=== PATIENT | female | born 1980 | race Caucasian/White ===

== ENCOUNTER → 2016-08-14 | Outpatient (CLI) | payer MEDICAID ==
--- NOTE | 2016-08-14 16:52 | RADIOLOGY REPORT (SQ) ---
EXAM DESCRIPTION: U/S 1TRIMESTER/1GEST W/DOPPLER COMPLETED DATE/TIME: 08/14/2016 4:42 pm REASON FOR STUDY: ENCOUNTER FOR SUPERVISION OF NORMAL Z34.81 ENCOUNTER FOR SUPRVSN OF NOR MAL , FIRST TRIM COMPARISON: None. TECHNIQUE: Transabdominal static and realtime grayscale images acquired of the pelvis. Additional se lected spectral and color Doppler images recorded. All images stored on PACs. bHCG: Not available, last menses 06/16/2016 LIMITATIONS: None. FINDINGS: FETUS: Living intrauterine . EGA: 7 weeks 6 days by crown-rump length GERMAIN: 03/27/2016 FHR: 150 beats per minute. SUBCHORIONIC BLEED: Yes SIZE OF BLEED: 3 x 2 cm subchorionic hemorrhage along the lower uterine segment. This involves less than 50% circumference of the gestational sac. UTERUS: No masses. No anomalies. Uterus is 11 x 8 x 7 cm in size CERVICAL LENGTH: Not well seen transabdominally. RIGHT ADNEXA: Not visualized due to adnexal bowel gas LEFT ADNEXA: Normal ovary with normal vascular flow. Left ovary 3.8 x 3.1 x 2.3 cm in size No adnexal free fluid. No adnexal masses. FREE FLUID: None. OTHER: No other significant finding. IMPRESSION: LIVING INTRAUTERINE . EGA 7 weeks 6 days by crown-rump length. Moderate size subchorionic hemorrhage Trimester of : First - 0 to 13 weeks. TECHNICAL DOCUMENTATION: JOB ID: [id number]- All Rights Reserved
== END ==
LOC: RAD 15:41
PROVIDERS: ATTEND Nurse Practitioner Women's Health
DX: O20.9 Hemorrhage in early pregnancy, unspecified (principal)
CPT/HCPCS: 76801; 93976

== ENCOUNTER 2017-07-13 21:06 | Emergency (ER) | payer MEDICAID ==
[2017-07-13 21:33] LABS: APPEARANCE,URINE SLIGHTLY-CLOUDY; BILIRUBIN,URINE NEGATIVE (NEGATIVE); COLOR,URINE AMBER; GLUCOSE, URINE NEGATIVE (NEGATIVE); KETONES,URINE NEGATIVE (NEGATIVE); LEUKOCYTE ESTERASE,URINE SMALL (NEGATIVE); NITRITE,URINE POSITIVE (NEGATIVE); PROTEIN,URINE 100 mg/dL (NEGATIVE); URINE SPECIFIC GRAVITY 1.003; UROBILINOGEN,URINE NEGATIVE mg/dL (<2.0)
[2017-07-13] MEDS ORDERED: CIPROFLOXACIN HCL 500 MG TABLET PO ONE (21:45)
[2017-07-13] MEDS ORDERED: PHENAZOPYRIDINE HCL 200 MG TABLET PO ONE (21:45)
--- NOTE | 2017-07-13 21:53 | ER Document Report ---
ED GI/ - General Chief Complaint: Urinary Problem Stated Complaint: BLOOD IN URINE Time Seen by Provider: 07/13/17 21:22 Mode of Arrival: Ambulatory Information source: Patient TRAVEL OUTSIDE OF THE [place] IN LAST 30 DAYS: No - HPI Patient complains to provider of: Dysuria, Hematuria Notes: 07/13/17 21:49 Patient is here with complaints of dysuria, hematuria, urinary frequency that started earlier today. She is complaining some low back and low mid abdominal pain. No fever. No nausea, vomiting, diarrhea. No vaginal bleeding or vaginal discharge. No rash. No injury. She is on no blood thinning medications. Patient has a history of urinary tract infections, and states that the symptoms that she is having is consistent with previous urinary tract infection she has had although she typically does not have blood. She denies any chest pain or shortness of breath. No dizziness. No syncope. No numbness , tingling, weakness. She denies any other complaints at this time. - Related Data Allergies/Adverse Reactions: Penicillins Allergy (Verified 07/13/17 21:07) Sulfa (Sulfonamide Antibiotics) Allergy (Verified 07/13/17 21:07) Past Medical History - Social History Smoking Status: Unknown if Ever Smoked Family History: Reviewed & Not Pertinent Patient has suicidal ideation: No Patient has homicidal ideation: No - Past Medical History Cardiac Medical History: Denies: Hx Coronary Artery Disease, Hx Heart Attack, Hx Hypertension Pulmonary Medical History: Denies: Hx Asthma, Hx Bronchitis, Hx COPD, Hx Pneumonia Neurological Medical History: Denies: Hx Cerebrovascular Accident, Hx Seizures Renal/ Medical History: Denies: Hx Peritoneal Dialysis Musculoskeltal Medical History: Denies Hx Arthritis Past Surgical History: Denies: Hx Hysterectomy - Immunizations Hx Diphtheria, Pertussis, Tetanus Vaccination: Yes Review of Systems - Review of Systems -: Yes All other systems reviewed and negative Physical Exam - Vital signs Vitals: Temp Pulse Resp BP Pulse Ox 98.1 F 95 16 120/84 100 07/13/17 21:10 07/13/17 21:10 07/13/17 21:10 07/13/17 21:10 07/13/17 21:10 - Notes Notes: GENERAL: alert, cooperative, nontoxic, no distress. HEAD: normocephalic, atraumatic EYES: conjunctiva pink without discharge, no external redness or swelling. EARS: no external swelling, no external redness NOSE: atraumatic, no external swelling MOUTH/THROAT: mucous membranes moist and pink, posterior pharynx without erythema, swelling, exudate. No trismus or drooling. NECK: soft, supple, full range of motion, no meningismus. CHEST: no distress, lungs clear and equal throughout. No wheezing, rales, rhonchi. CARDIAC: regular rate and rhythm, no murmur, normal capillary refill, normal pulses. No peripheral edema noted. ABDOMEN: Soft, minimal suprapubic tenderness to palpation. No rebound tenderness or guarding. BACK: full range of motion, no CVA tenderness. EXTREMITIES: full range of motion of all extremities. No redness, no swelling. NEURO: alert and oriented x 3, no focal deficits, full range of motion of all extremities. PYSCH: appropriate mood, affect. Patient is cooperative. SKIN: pink, warm, dry, no rash. Course - Re-evaluation Re-evalutation: 07/13/17 21:50 Patient is nontoxic appearing with stable vitals. She is here with complaints of dysuria, hematuria, urinary frequency. This started earlier today. She has a history of urinary tract infections and the symptoms are similar to previous urinary tract infections aside from hematuria. She is on blood thinning medications. She has no CVA tenderness. She has minimal suprapubic tenderness to palpation. Urinalysis is consistent with urinary tract infection. She will be given a dose of Cipro based on her allergies to penicillin and sulfa as well as Pyridium here in emergency department will be given a prescription for both. She was instructed to drink lots of water. Follow-up if not improved in the next 48 hours, sooner for worsening pain, fever, persistent vomiting, severe flank pain, or for any further concerns. The patient is noted to have elevated blood pressure during today's emergency department visit. The patient was informed of this finding. The patient was instructed that this may be related to pre-hypertension and requires further evaluation with a primary care provider. The patient has no hypertensive symptoms at this time. The patient's emergency department workup and current diagnosis were explained to the patient and or family. Follow-up instructions were provided. Medications if prescribed were discussed. Instructions for when to return to the emergency department including specific worrisome symptoms were discussed with the patient and/or family. - Vital Signs Vital signs: Temp Pulse Resp BP Pulse Ox 98.1 F 95 16 120/84 100 07/13/17 21:10 07/13/17 21:10 07/13/17 21:10 07/13/17 21:10 07/13/17 21:10 - Laboratory Laboratory results interpreted by me: 07/13/17 21:20 Urine Protein 100 H Urine Blood LARGE H Urine Nitrite POSITIVE H Ur Leukocyte Esterase SMALL H Discharge - Discharge Clinical Impression: Hemorrhagic cystitis Condition: Stable Disposition: HOME, SELF-CARE Instructions: Urinary Tract Infection ([facility]) Additional Instructions: Take medications as prescribed. Drink plenty of fluids. Follow-up with your doctor if not better in the next 48 hours, sooner for worsening pain, fever, severe abdominal pain, persistent vomiting, flank pain, chest pain or shortness of breath, or for any further concerns. Your blood pressure was elevated during today's visit. Have this rechecked with your doctor. Prescriptions: Ciprofloxacin HCl [Cipro 500 mg Tablet] 500 mg PO BID #10 tablet Phenazopyridine HCl [Pyridium 200 mg Tablet] 200 mg PO TID #9 tablet Forms: Elevated Blood Pressure Referrals: SINCERE DICK MD [Primary Care Provider] - Follow up as needed
[2017-07-13 21:59] VITALS: BP 112/93
== END 2017-07-13 21:58 | disposition home or self-care (01) ==
LOC: ER 21:06
DX: N30.91 Cystitis, unspecified with hematuria (principal); R30.0 Dysuria; R35.0 Frequency of micturition; M54.5 Low back pain; R10.30 Lower abdominal pain, unspecified; R10.9 Unspecified abdominal pain; R03.0 Elevated blood-pressure reading, without diagnosis of hypertension
CPT/HCPCS: 99283; 81025; 81001; J3490 ×2